=== PATIENT | male | born 1965 | race African-American/Black ===

== ENCOUNTER 2024-06-01 13:50 | Observation (INO) | payer OTHER ==
--- NOTE | 2024-06-01 14:30 | ED ---
Recheck HPI - General Source: patient, EMS, RN notes reviewed Mode of arrival: EMS Limitations: no limitations <Whitney Lagos - Last Filed: 06/01/24 14:28> <Frederic Frances - Last Filed: 06/01/24 18:14> - General Chief Complaint: Recheck/Abnormal Lab/Rx Stated Complaint: SOB Time Seen by Provider: 06/01/24 14:25 - History of Present Illness Initial Comments: Quick Note: This is a 59-year-old male who presents to the emergency department for low oxygen saturation. Patient went to check into [facility] and states that he had just come down the stairs and was somewhat winded. They checked his oxygen saturation and noted it to be low. Patient has a history of COPD and wears oxygen as needed. He told them that if they would have let him go use his oxygen it would have come back up. However, they called EMS to bring him here. Patient states that he currently feels fine and does not need to be here. (Whitney Lagos) - Related Data Home Medications Medication Instructions Recorded Confirmed Albuterol Inhaler [Ventolin Hfa 2 puff INHALATION RT-QID PRN 06/01/24 06/01/24 Inhaler] Atorvastatin [Lipitor] 20 mg PO HS@209906/01/24 06/01/24 Celecoxib [CeleBREX] 200 mg PO DAILY PRN 06/01/24 06/01/24 Fluticasone/Umeclidin/Vilanter 1 puff INHALATION RT-DAILY 06/01/24 06/01/24 [Trelegy Ellipta 100-62.5-25] Gabapentin 800 mg PO DAILY 06/01/24 06/01/24 Lisinopril-Hctz 10-12.5 mg 1 tab PO DAILY 06/01/24 06/01/24 [Zestoretic 10-12.5] Nicotine 21Mg/24Hr Patch [Habitrol] 1 patch TRANSDERM DAILY 06/01/24 06/01/24 Omeprazole 20 mg PO BID 06/01/24 06/01/24 Tamsulosin [Flomax] 0.4 mg PO DAILY 06/01/24 06/01/24 metFORMIN HCL 500 mg PO BID 06/01/24 06/01/24 traZODone HCL 150 mg PO HS@2100 06/01/24 06/01/24 valACYclovir HCL [Valacyclovir] 500 mg PO DAILY 06/01/24 06/01/24 Allergies Allergy/AdvReac Type Severity Reaction Status Date / Time sulfamethoxazole Allergy Rash/Hives Verified 06/01/24 17:40 [From Bactrim] trimethoprim [From Bactrim] Allergy Rash/Hives Verified 06/01/24 17:40 Review of Systems ROS Other: All systems not noted in ROS Statement are negative. <Whitney Lagos - Last Filed: 06/01/24 14:28> ROS Other: All systems not noted in ROS Statement are negative. <Frederic Frances - Last Filed: 06/01/24 18:14> ROS Statement: Those systems with pertinent positive or pertinent negative responses have been documented in the HPI. Past Medical History Past Medical History: COPD, Diabetes Mellitus, Hypertension Smoking Status: Current every day smoker Past Alcohol Use History: Daily, Heavy Past Drug Use History: Cocaine <Whitney Lagos - Last Filed: 06/01/24 14:28> General Exam Limitations: no limitations <Whitney Lagos - Last Filed: 06/01/24 14:28> - General Exam Comments Initial Comments: Visual Physical Exam Vital signs reviewed General: Well-appearing, nontoxic, no acute distress. Head: Normocephalic, atraumatic Eyes: PERRLA, EOMI ENT: Airway patent Chest: Nonlabored breathing Skin: No visual rash, normal skin tone Neuro: Alert and oriented 3 Musculoskeletal: No gross abnormalities (Whitney Lagos) Course Vital Signs 06/01/24 06/01/24 06/01/24 14:00 17:00 17:17 Temperature 97.9 F Pulse Rate 89 86 77 Respiratory 18 18 Rate Blood Pressure 98/67 O2 Sat by Pulse 91 L 93 L Oximetry 06/01/24 06/01/24 17:31 17:33 Temperature Pulse Rate 84 81 Respiratory 24 Rate Blood Pressure 111/84 O2 Sat by Pulse 100 Oximetry Medical Decision Making <Whitney Lagos - Last Filed: 06/01/24 14:28> - Lab Data Result diagrams: 06/01/24 17:04 06/01/24 16:40 <Frederic Frances - Last Filed: 06/01/24 18:14> - Medical Decision Making I performed the QuickNote portion of this chart. Signed Whitney Lagos PA-C. (Whitney Lagos) Was pt. sent in by a medical professional or institution ([facility], [employer], urgent care, hospital, or prison...) When possible be specific @ -No Did you speak to anyone other than the patient for history (EMS, parent, family, police, friend...)? What history was obtained from this source @ -No Did you review nursing and triage notes (agree or disagree)? Why? @ -I reviewed and agree with nursing and triage notes Were old charts reviewed (outside hosp., previous admission, EMS record, old EKG, old radiological studies, urgent care reports/EKG's, prison records)? Report findings @ -No old charts were reviewed Differential Dyspnea: Coronary syndrome, arrhythmia, tamponade, asthma, COPD, pulmonary embolism, pneumonia, pneumothorax, pulmonary effusion, anaphylaxis, diabetic ketoacidosis, flailed chest, pulmonary contusion, diaphragmatic rupture, anemia, neuromuscular, this is not meant to be an all-inclusive list. EKG interpreted by me (3pts min.). @Sinus rhythm rate of 75, ME interval 170, QRS duration 104, QTc [address] segment elevation X-rays interpreted by me (1pt min.). @ -X-ray shows bilateral lower lobe infiltrate as well as large bulla in the right upper lung field CT interpreted by me (1pt min.). @ -None done U/S interpreted by me (1pt. min.). @ -None done What testing was considered but not performed or refused? (CT, X-rays, U/S, labs)? Why? @ -None What meds were considered but not given or refused? Why? @ -None Did you discuss the management of the patient with other professionals (professionals i.e. [facility], [employer], lab, RT, psych nurse, social organization professor, gunner's mate m, teacher, licensed mortgage loan officer, rn case mgr)? Give summary @ -No Was smoking cessation discussed for >3mins.? @ -No Was critical care preformed (if so, how long)? @ -No Were there social determinants of health that impacted care today? How? (Johnnie elessness, low income, unemployed, alcoholism, drug addiction, transportation, low edu. Level, literacy, decrease access to med. care, skilled nursing, rehab)? @ -No Was there de-escalation of care discussed even if they declined (Discuss DNR or withdrawal of care, Hospice)? DNR status @ -No What co-morbidities impacted this encounter? (DM, HTN, Smoking, COPD, CAD, Cancer, CVA, ARF, Chemo, Hep., AIDS, mental health diagnosis, sleep apnea, morbid obesity)? @ -COPD Was patient admitted / discharged? Hospital course, mention meds given and route, prescriptions, significant lab abnormalities, going to OR and other pertinent info. @ -[59-year-old male presenting for evaluation of dyspnea, history of COPD and stimulant abuse. Patient was checking into [facility] found to be hypoxic. Patient stated he does occasionally use supplemental oxygen. He does report cough. Chest x-ray shows large bulla in the right upper lung and bilateral lower lobe infiltrate. Patient has normal CBC, normal CMP. He will be treated for COPD exacerbation and pneumonia. Admitted for hypoxia. Case discussed with sound physician group. Undiagnosed new problem with uncertain prognosis? @ -No Drug Therapy requiring intensive monitoring for toxicity (Heparin, Nitro, Insulin, Cardizem)? @ -No Were any procedures done? @ -No Diagnosis/symptom? @COPD, pneumonia Acute, or Chronic, or Acute on Chronic? @ -Default Uncomplicated (without systemic symptoms) or Complicated (systemic symptoms)? @ -Default Side effects of treatment? @ -No Exacerbation, Progression, or Severe Exacerbation? @ -No Poses a threat to life or bodily function? How? (Chest pain, USA, PA, pneumonia, PE, COPD, DKA, ARF, appy, cholecystitis, CVA, Diverticulitis, Homicidal, Suicidal, threat to staff... and all critical care pts) @ -yes, respiratory failure, hypoxia, sepsis (Frederic Frances) - Lab Data Lab Results 06/01/24 06/01/24 06/01/24 Range/Units 16:40 16:40 17:04 WBC 6.3 (3.8-10.6) k/uL RBC 4.79 (4.30-5.90) m/uL Hgb 13.7 (13.0-17.5) gm/dL Hct 44.1 (39.0-53.0) % MCV 92.1 (80.0-100.0) fL MCH 28.7 (25.0-35.0) pg MCHC 31.1 (31.0-37.0) g/dL RDW 16.8 H (11.5-15.5) % Plt Count 308 (150-450) k/uL MPV 9.5 Neutrophils % 47 % Lymphocytes % 44 % Monocytes % 5 % Eosinophils % 2 % Basophils % 1 % Neutrophils # 3.0 (1.3-7.7) k/uL Lymphocytes # 2.7 (1.0-4.8) k/uL Monocytes # 0.3 (0-1.0) k/uL Eosinophils # 0.2 (0-0.7) k/uL Basophils # 0.0 (0-0.2) k/uL Hypochromasia Slight Anisocytosis Slight Sodium 138 (137-145) mmol/L Potassium 4.6 (3.5-5.1) mmol/L Chloride 103 (98-107) mmol/L Carbon Dioxide 30 (22-30) mmol/L Anion Gap 5 mmol/L BUN 13 (9-20) mg/dL Creatinine 0.79 (0.66-1.25) mg/dL Est GFR (CKD-EPI)AfAm >90 (>60 ml/min/1.73 sqM) Est GFR (CKD-EPI)NonAf >90 (>60 ml/min/1.73 sqM) Glucose 72 L (74-99) mg/dL Plasma Lactic Acid Barry 1.5 (0.7-2.0) mmol/L Calcium 8.9 (8.4-10.2) mg/dL Total Bilirubin 0.9 (0.2-1.3) mg/dL AST 73 H (17-59) U/L ALT 38 (4-49) U/L Alkaline Phosphatase 79 (38-126) U/L Total Protein 7.1 (6.3-8.2) g/dL Albumin 3.5 (3.5-5.0) g/dL Disposition <Whitney Lagos - Last Filed: 06/01/24 14:28> Is patient prescribed a controlled substance at d/c from ED?: No Time of Disposition: 18:14 <Frederic Frances Last Filed: 06/01/24 18:14> Clinical Impression: COPD exacerbation, Pneumonia Disposition: ADMITTED IP TO THIS HOSP Condition: Stable Referrals: Nonstaff,Physician [Primary Care Provider] - 1-2 days
--- NOTE | 2024-06-01 15:45 | XR ---
EXAMINATION TYPE: XR chest 2V DATE OF EXAM: 06/01/2024 COMPARISON: None HISTORY: 51 year-old male shortness of breath, difficulty breathing TECHNIQUE: PA and lateral views FINDINGS: Elevation right hemidiaphragm. Multifocal patchy and interstitial opacities especially in the left si de. Heart is normal in size. This is estimated to measure up to 15.1 cm. No pleural effusion. IMPRESSION: 1. Bullous emphysema. Right upper lung bulla estimated to measure up to 15.1 cm. 2. Patchy infiltrates in the bilateral mid and lower lungs. Correlate for infectious or aspiration pn eumonitis. 3. Asymmetric elevation right hemidiaphragm. If concern for hemidiaphragmatic paralysis, a fluoroscop ic sniff test can be performed. [facility], , 06/01/2024 3:43 PM
[2024-06-01 17:11] LABS: ALT 38 U/L (4-49); African American GFR (CKD) >90 (>60 ml/min/1.73 sqM); Anion Gap 5 mmol/L; Blood Urea Nitrogen 13 mg/dL (9-20); Calcium 8.9 mg/dL (8.4-10.2); Carbon Dioxide 30 mmol/L (22-30); Chloride 103 mmol/L (98-107); Non-African American GFR(CKD) >90 (>60 ml/min/1.73 sqM); Sodium 138 mmol/L (137-145)
[2024-06-01] MEDS: IPRATROPIUM 0.5 MG/2.5 ML NEBU INHALATION STA (17:16)
[2024-06-01] MEDS: ALBUTEROL NEBULIZED 2.5 MG/3 ML INHALATION STA (17:16)
[2024-06-01] MEDS: SODIUM CHLORIDE 0.9% 500 ML 500 ML IV STA (17:24)
[2024-06-01] MEDS: methylPREDNISolone SOD SUCCI 125 MG/2 ML VIAL IV STA (17:24)
[2024-06-01] MEDS: SODIUM CHLORIDE 0.9% 1,000 ML IV STA (17:24)
[2024-06-01 17:38] LABS: AST 73 U/L (17-59); Albumin 3.5 g/dL (3.5-5.0); Alkaline Phosphatase 79 U/L (38-126); Glucose 72 mg/dL (74-99); Potassium 4.6 mmol/L (3.5-5.1); Total Bilirubin 0.9 mg/dL (0.2-1.3); Total Protein 7.1 g/dL (6.3-8.2)
[2024-06-01 17:55] LABS: Anisocytosis Slight; Basophils % (A) 1 %; Eosinophils # (A) 0.2 k/uL (0-0.7); Eosinophils % (A) 2 %; HCT 44.1 % (39.0-53.0); HGB 13.7 gm/dL (13.0-17.5); Hypochromasia Slight; Lymphocytes # (A) 2.7 k/uL (1.0-4.8); Lymphocytes % (A) 44 %; MCH 28.7 pg (25.0-35.0); MCHC 31.1 g/dL (31.0-37.0); MCV 92.1 fL (80.0-100.0); Mean Platelet Volume 9.5; Monocytes # (A) 0.3 k/uL (0-1.0); Monocytes % (A) 5 %; Neutrophils % (A) 47 %; Platelet Count 308 k/uL (150-450); RBC 4.79 m/uL (4.30-5.90); RDW 16.8 % (11.5-15.5); WBC 6.3 k/uL (3.8-10.6)
[2024-06-01] MEDS: LORazepam 2 MG/ML INJ IV STA (18:04)
[2024-06-01] MEDS: AZITHROMYCIN 500 MG in SODIUM CHLORIDE 0.9% 250 ML IVPB STA (18:04)
[2024-06-01] MEDS ORDERED: NALOXONE 0.4 MG/ML 1 ML VIAL IVP PRN (18:11)
[2024-06-01] MEDS: IPRATROPIUM-ALBUTEROL 3 ML NEB INHALATION SCH (20:33)
--- NOTE | 2024-06-01 20:44 | P.HPIM ---
History of Present Illness H&P Date: 06/01/24 Chief Complaint: hypoxemia Patient is a 59-year-old male with COPD (home O2 2 L), hypertension, type II diabetes presents to the ED with low oxygen saturation. Patient states that he felt short of breath after going down a flight of stairs. As he was checking in the [facility] decided to check his oxygen levels and it was noted to be low, they advised him to go to the emergency department. Patient was seen at bedside in the ED, and states he feels a lot better. Patient denies fever, chills, chest pain, nausea, vomiting, abdominal pain. Patient denies any known sick contact, he reports a chronic cough unchanged from baseline denies any hemoptysis, he uses home oxygen as needed 2 L which she did not have on him when he was checking in to [facility]. He reports that he gets easily winded which has been the case for many years he continues to smoke and trying to quit. He denies any recent travel or hospital stay he denies any history of blood clots. Patient was going to [facility] for rehab from drug abuse he admits to occasionally using cocaine and last time he used it it was laced with fentanyl. reports unintentional weight loss of about 25 lbs over past few months Review of systems: Pertinent positives and negatives as discussed in HPI, a complete review of systems was performed and all other systems are negative. Physical examination: Vitals: OR 100, RR 22 short of breath-labored, OR 102/63, O2 sat 97% on 2 L nasal cannula General: non toxic, mild distress, appears at stated age, normal weight Derm: no unusual rashes/lesions, warm Head: atraumatic, normocephalic, symmetric Eyes: EOMI, anicteric sclera, pupils equal round reactive to light ENT: Nose and ears atraumatic Mouth: no lip lesion, mucus membranes moist Cardiovascular: S1S2 reg, no murmur, positive dorsalis pedis pulse bilateral, no edema Lungs: Lung sounds diminished, no rhonchi, no rales, no accessory muscle use Abdominal: soft, nontender to palpation, no guarding Ext: muscle strength 5 out of 5 in all 4 extremities grossly, no gross muscle atrophy, no contractures, Neuro: CN II-XI grossly intact, no gross focal neuro deficits Psych: Alert, oriented, to person, place, and time Assessment/Plan: Patient is a 59-year-old male with COPD (home O2 2 L), hypertension, type II diabetes presents to the ED with abnormal lab value. ED documentation reviewed and case discussed with ED provider. Discussed with patient. The patient is admitted with an anticipated greater than 2 midnight stay for evaluation of COPD exacerbation. #. Acute on chronic hypoxic respiratory failure, with end stage COPD #. COPD exacerbation Suspected pneumonia CBC unremarkable hgb13.7, wbc 7.5 EKG independently interpreted showed sinus rhythm, no abnormal ST changes or T wave abnormalities, rate 75 bpm, QTc 426 ms CXR independently interpreted showed bullous emphysema in the right upper lung estimated to measure up to 15.1 cm, Patchy infiltrates bilateral mid lower lung arauz, asymmetric elevation of right hemidiaphragm On 4 L nasal cannula, keep O2 saturation between 88-92% DuoNeb 3 mL inhalation QID DuoNeb 3 mL inhalation every 2hr PRN Placed on Solu-Medrol 60 mg IV Q6hr Blood cultures ordered Procalcitonin ordered Pulmonology consulted s/p Rocephine 2 gm IVPB and Azithromycin IVPB 500 mg in the ED, continue with Azithromycin 500 mg po daily Symbicort 2 puffs BID check ambulatory oxygen saturation in the morning xanax 0.5 mg po tid PRN for anxiety #. Type 2 diabetes #. Hypoglycemia Glucose 72 Patient asymptomatic Hold oral diabetic medication Accu-Cheks Fall precautions Glucose should correct with IV Solu-Medrol Place on insulin SQ sliding scale #. Hypertension Hold antihypertensives for now due to borderline low BP Continue with NS at 75 cc/hr #. Hyperlipidemia Continue atorvastatin 20 mg PO at bedtime #. BPH Continue Flomax 0.4 mg PO daily #. GERD Continue omeprazole 20 mg p.o. twice daily long history of smoking , patient reported unintentional weight loss, consider repeating CXR in 6 weeks to confirm resolution of the patchy infilterates, and if residual consider CT of the chest consider Low dose CT scan of the lungs as OP , for lung cancer screening , patient has > 30 pack year smoking DVT prophylaxis: Lovenox 40 SQ daily F: NS @ 75 cc/hr E: Replete electrolytes as needed N: Regular diet A: Ambulatory CODE STATUS: Full code Past Medical History Past Medical History: COPD, Diabetes Mellitus, Hypertension Smoking Status: Current every day smoker Past Alcohol Use History: Daily, Heavy Past Drug Use History: Cocaine Medications and Allergies Home Medications Medication Instructions Recorded Confirmed Type Albuterol Inhaler [Ventolin Hfa 2 puff INHALATION RT-QID PRN 06/01/24 06/01/24 History Inhaler] Atorvastatin [Lipitor] 20 mg PO HS@2100 06/01/24 06/01/24 History Celecoxib [CeleBREX] 200 mg PO DAILY PRN 06/01/24 06/01/24 History Fluticasone/Umeclidin/Vilanter 1 puff INHALATION RT-DAILY 06/01/24 06/01/24 History [Trelegy Ellipta 100-62.5-25] Gabapentin 800 mg PO DAILY 06/01/24 06/01/24 History Lisinopril-Hctz 10-12.5 mg 1 tab PO DAILY 06/01/24 06/01/24 History [Zestoretic 10-12.5] Nicotine 21Mg/24Hr Patch [Habitrol] 1 patch TRANSDERM DAILY 06/01/24 06/01/24 History Omeprazole 20 mg PO BID 06/01/24 06/01/24 History Tamsulosin [Flomax] 0.4 mg PO DAILY 06/01/24 06/01/24 History metFORMIN HCL 500 mg PO BID 06/01/24 06/01/24 History traZODone HCL 150 mg PO HS@209906/01/24 06/01/24 History valACYclovir HCL [Valacyclovir] 500 mg PO DAILY 06/01/24 06/01/24 History Allergies Allergy/AdvReac Type Severity Reaction Status Date / Time sulfamethoxazole Allergy Rash/Hives Verified 06/01/24 17:40 [From Bactrim] trimethoprim [From Bactrim] Allergy Rash/Hives Verified 06/01/24 17:40 Physical Exam Vitals: Vital Signs Temp Pulse Resp BP Pulse Ox 06/01/24 19:26 22 06/01/24 18:24 100 24 102/63 97 06/01/24 17:33 81 06/01/24 17:31 84 24 111/84 100 06/01/24 17:17 77 06/01/24 17:00 86 18 93 L 06/01/24 14:00 97.9 F 89 18 98/67 91 L Intake and Output 06/01/24 06/01/24 06/01/24 06:59 14:59 22:59 Other: Weight 79.379 kg Results CBC & Chem 7: 06/01/24 17:04 06/01/24 16:40 Labs: Abnormal Lab Results - Last 24 Hours (Table) 06/01/24 06/01/24 Range/Units 16:40 17:04 RDW 16.8 H (11.5-15.5) % Glucose 72 L (74-99) mg/dL AST 73 H (17-59) U/L Assessment and Plan Assessment: I have seen and evaluated the patient today. I Discussed the case with the resident and agree with the resident's findings I edited the assessment and pl an as necessary as documented in the resident's note.
[2024-06-01 21:09] LABS: Glucose,Whole Blood 150 mg/dL (70-110)
[2024-06-01] MEDS: INSULIN ASPART (NovoLOG) 100 UNIT/ML VIAL SQ SCH (21:32)
[2024-06-01] MEDS: ATORVASTATIN 20 MG TAB PO SCH (21:34)
[2024-06-01] MEDS: methylPREDNISolone SOD SUCCI 125 MG/2 ML VIAL IV SCH (23:36)
[2024-06-01] MEDS: ALPRAZolam 0.5 MG TAB PO PRN (23:37)
[2024-06-01] MEDS: traZODone HCL 50 MG TAB PO SCH (23:37)
[2024-06-02] MEDS: IPRATROPIUM-ALBUTEROL 3 ML NEB INHALATION PRN (04:52)
--- NOTE | 2024-06-02 05:15 | P.CNPUL ---
History of Present Illness Consult date: 06/02/24 Reason for consult: COPD Chief complaint: Shortness of breath and hypoxia History of present illness: Patient is a 59-year-old male with past medical history significant for COPD, current smoker, alcoholism, polysubstance abuse, diabetes mellitus, hypertension. Patient lives in [place]. His established pulmonogist is a Dr. Wilder out of [place], [place]. Patient was at [facility] to check in for rehab. He uses cocaine frequently, reportedly possibly laced with fentanyl. Has history of alcoholism, but now only drinking approximately 1 beer per month. While at [facility]. He was short of breath when ambulating down some stairs. The staff checked his pulse ox, which was noted to be low. Patient chronically wears 2 L/min nasal cannula as needed, and this was not on at this time. EMS was called and the patient was brought to the emergency department for evaluation. He was admitted with COPD exacerbation. Patient currently on the general medical floor. He is resting comfortably on 2 L/min nasal cannula. Patient denies runny nose, sore throat, postnasal drip, sinus pressure. He does report being more short of breath than baseline. His cough is congested and occasionally has yellow sputum production. He denies any fevers or chills. No chest pain or hemoptysis. Denies sick contacts. Chest x- ray done on arrival shows chronic changes consistent with COPD and hyperinflat ion. There is an elevated right hemidiaphragm and associated atelectasis. There is a large right bullae. questionable bibasilar infiltrates or atelectasis. Patient was started empirically on azithromycin. Also, received a dose of Rocephin in the emergency department. Procalcitonin level pending. He is afebrile. CBC unremarkable, no leukocytosis. CMP also unremarkable. EKG: Normal sinus rhythm with rate of 75 bpm, nonspecific ST elevations. Patient has been started on a combination of bronchodilators, Symbicort inhaler, and prednisone taper. Review of Systems Constitutional: Reports weight loss, Denies chills, Denies fever, Denies weight gain Ears, nose, mouth and throat: Denies headache, Denies nasal congestion, Denies nasal discharge, Denies post-nasal drip, Denies sinus pressure, Denies sore throat Cardiovascular: Denies chest pain, Denies leg edema, Denies lightheadedness, Denies orthopnea, Denies palpitations, Denies paroxysmal nocturnal dyspnea, Denies shortness of breath Respiratory: Reports as per HPI Gastrointestinal: Reports loss of appetite, Denies abdominal pain, Denies change in bowel habits, Denies constipation, Denies diarrhea, Denies nausea, Denies vomiting Genitourinary: Denies dysuria Musculoskeletal: Denies arm numbness/tingling, Denies leg numbness/tingling, Denies limitation of motion, Denies muscle weakness Integumentary: Denies rash Neurological: Denies confusion, Denies headaches, Denies seizures, Denies s yncope, Denies visual changes Psychiatric: Reports anxiety, Reports depression, Denies suicidal ideation Past Medical History Past Medical History: COPD, Diabetes Mellitus, Hypertension History of Any Multi-Drug Resistant Organisms: None Reported Past Surgical History: Orthopedic Surgery Additional Past Surgical History / Comment(s): left hand surgery Past Anesthesia/Blood Transfusion Reactions: No Reported Reaction Smoking Status: Current every day smoker Past Alcohol Use History: Daily, Heavy Past Drug Use History: Cocaine Medications and Allergies Home Medications Medication Instructions Recorded Confirmed Type Albuterol Inhaler [Ventolin Hfa 2 puff INHALATION RT-QID PRN 06/01/24 06/01/24 History Inhaler] Atorvastatin [Lipitor] 20 mg PO HS@2100 06/01/24 06/01/24 History Celecoxib [CeleBREX] 200 mg PO DAILY PRN 06/01/24 06/01/24 History Fluticasone/Umeclidin/Vilanter 1 puff INHALATION RT-DAILY 06/01/24 06/01/24 History [Trelegy Ellipta 100-62.5-25] Gabapentin 800 mg PO DAILY 06/01/24 06/01/24 History Lisinopril-Hctz 10-12.5 mg 1 tab PO DAILY 06/01/24 06/01/24 History [Zestoretic 10-12.5] Nicotine 21Mg/24Hr Patch [Habitrol] 1 patch TRANSDERM DAILY 06/01/24 06/01/24 History Omeprazole 20 mg PO BID 06/01/24 06/01/24 History Tamsulosin [Flomax] 0.4 mg PO DAILY 06/01/24 06/01/24 History metFORMIN HCL 500 mg PO BID 06/01/24 06/01/24 History traZODone HCL 150 mg PO HS@2100 06/01/24 06/01/24 History valACYclovir HCL [Valacyclovir] 500 mg PO DAILY 06/01/24 06/01/24 History Allergies Allergy/AdvReac Type Severity Reaction Status Date / Time sulfamethoxazole Allergy Rash/Hives Verified 06/01/24 17:40 [From Bactrim] trimethoprim [From Bactrim] Allergy Rash/Hives Verified 06/01/24 17:40 Physical Exam Vitals: Vital Signs Temp Pulse Pulse Resp BP BP Pulse Ox 06/02/24 01:47 98.0 F 81 18 119/78 95 06/01/24 21:30 97.5 F L 88 20 119/80 93 L 06/01/24 20:45 77 06/01/24 20:33 75 06/01/24 20:00 97.5 F L 88 88 20 107/65 119/80 93 L 06/01/24 19:26 22 06/01/24 18:24 100 24 102/63 97 06/01/24 17:33 81 06/01/24 17:31 84 24 111/84 100 06/01/24 17:17 77 06/01/24 17:00 86 18 93 L 06/01/24 14:00 97.9 F 89 18 98/67 91 L Intake and Output 06/01/24 06/01/24 06/02/24 14:59 22:59 06:59 Other: Voiding Method Urinal # Voids 1 Weight 79.379 kg 79.379 kg GENERAL EXAM: Alert, 59-year-old -Gabonese male, comfortable in no apparent distress. HEAD: Normocephalic and atraumatic EYES: Normal reaction of pupils, equal size. NOSE: Clear with pink turbinates. THROAT: No erythema or exudates. NECK: No masses, no JVD. CHEST: No chest wall deformity. LUNGS: Equal air entry, diminished throughout, scattered ronch. On 2 L/min nasal cannula. No conversational dyspnea or accessory muscle use.. CVS: S1 and S2 normal with no audible murmur, regular rhythm. No extra heart sounds ABDOMEN: No hepatosplenomegaly, active bowel sounds, no guarding or rigidity. SPINE: No scoliosis or deformity SKIN: No rashes CENTRAL NERVOUS SYSTEM: No focal deficits, tone is normal in all 4 extremities. EXTREMITIES: There is no peripheral edema, clubbing, or cyanosis. Peripheral pulses are intact. Results - Laboratory Findings CBC and BMP: 06/01/24 17:04 06/01/24 16:40 Abnormal lab findings: Abnormal Labs 06/01/24 06/01/24 06/01/24 16:40 17:04 21:08 RDW 16.8 H Glucose 72 L POC Glucose (mg/dL) 150 H AST 73 H - Diagnostic Findings Chest x-ray: image reviewed Assessment and Plan Assessment: Acute COPD exacerbation, Chest x-ray done on arrival shows chronic changes consistent with COPD and hyperinflation. There is an elevated right hemidiaphragm and associated atelectasis. There is a large right bullae. questionable bibasilar infiltrates or atelectasis. Chronic obstructive pulmonary disease and bullous emphysema, utilizes Trelegy maintenance inhaler on an outpatient basis Chronic hypoxemic respiratory failure, normally maintained on 2 L/min nasal cannula as needed Unexplained, 25 pound weight loss over the last 2 months History of alcoholism, on average currently only drinks 1 beer per month History of polysubstance abuse Chronic ongoing tobacco dependence, reportedly down to 5 cigarettes/day, but carries heavy past smoking history greater than 20 pack years. History of hypertension History of hyperlipidemia Diabetes mellitus type 2 history of BPH Plan: Patient's medications, labs, chest x-ray reviewed Patient currently on 2 L/min nasal cannula, which he chronically wears at home Continue on empiric antibiotics at this time Check procalcitonin level Check Cepheid 4 Plex Continue on combination of bronchodilators, Symbicort inhaler, and prednisone taper Smoking cessation counseling performed greater than 10 minutes Nicotine patch offered Anticipate 24 to 48-hour hospitalization. Recommend that the patient follow-up with his established dough puncher on dis charge, Recommend low-dose screening CT of the chest, on outpatient basis, given patients extensive smoking history and age. We will continue to follow while inpatient I have personally seen and examined the patient, performed the documentation and the assessment and plan as written. Number of minutes spent on the visit:20 Time with Patient: Greater than 30
[2024-06-02 05:59] LABS: Glucose,Whole Blood 297 mg/dL (70-110)
[2024-06-02] MEDS: SYMBICORT 160-4.5 MCG INHALER INHALATION SCH (07:25)
[2024-06-02 08:37] LABS: Basophils # (A) 0 X 10*3/uL (0.00-0.10); Basophils % (A) 0 %; Eosinophils # (A) 0 X 10*3/uL (0.04-0.35); Eosinophils % (A) 0 %; HCT 41.4 % (39.6-50.0); HGB 13.2 g/dL (13.0-17.0); Lymphocytes # (A) 1.22 X 10*3/uL (0.90-5.00); Lymphocytes % (A) 20.7 %; MCH 28.4 pg (27.0-32.0); MCHC 31.9 g/dL (32.0-37.0); Mean Platelet Volume 11.3 FL (9.5-12.2); Monocytes # (A) 0.06 X 10*3/uL (0.20-1.00); NRBC Per 100 WBC 0 X 10*3/uL (0.00-0.01); Neutrophils # (A) 4.59 X 10*3/uL (1.80-7.70); Platelet Count 286 X 10*3/uL (140-440); RBC 4.65 X 10*6/uL (4.40-5.60); RDW 18.5 % (11.5-14.5); WBC 5.89 X 10*3/uL (4.50-10.00)
[2024-06-02] MEDS: predniSONE 20 MG TAB PO SCH (10:18)
[2024-06-02] MEDS: ENOXAPARIN 40 MG/0.4 ML SYRINGE SQ SCH (10:19)
[2024-06-02] MEDS: AZITHROMYCIN 500 MG TAB PO SCH (10:19)
[2024-06-02] MEDS: TAMSULOSIN 0.4 MG CAP.ER.24H PO SCH (10:19)
[2024-06-02 10:28] LABS: ALT 37 U/L (10-49); AST 41 U/L (14-35); Albumin 3.5 g/dL (3.8-4.9); Albumin/Globulin Ratio 1.13 Ratio (1.60-3.17); Alkaline Phosphatase 112 U/L (41-126); BUN/Creat Ratio 11.62 Ratio (12.00-20.00); Blood Urea Nitrogen 9.3 mg/dL (9.0-27.0); Calcium 8.9 mg/dL (8.7-10.3); Carbon Dioxide 25.2 mmol/L (21.6-31.8); Chloride 102 mmol/L (96-109); Globulin 3.1 g/dL (1.6-3.3); Glucose 241 mg/dL (70-110); Magnesium 1.9 mg/dL (1.5-2.4); Potassium 4.9 mmol/L (3.5-5.5); Sodium 138 mmol/L (135-145); Total Bilirubin <0.2 mg/dL (0.3-1.2); Total Protein 6.6 g/dL (6.2-8.2)
[2024-06-02 10:35] LABS: Urine Alcohol Negative (Negative); Urine Barbiturate Negative (Negative); Urine Cocaine Positive (Negative); Urine Methadone Negative (Negative); Urine Opiates Negative (Negative); Urine Phencyclidine Negative (Negative)
[2024-06-02] MEDS: NICOTINE 21MG/24HR PATCH TRANSDERM SCH (11:02)
[2024-06-02 13:23] LABS: Glucose,Whole Blood 149 mg/dL (70-110)
--- NOTE | 2024-06-02 14:26 | P.PN ---
Subjective Progress Note Date: 06/02/24 Subjective: Patient seen and examined at bedside All Systems reviewed and pertinent positives and negatives noted in HPI, all other symptoms are negative Objective: Patient seen and examined at the bedside. Patient reports that is feeling better overall. Reports increased productive cough since last 3 to 4 days with yellowish sputum. Vital signs reviewed. Physical examination: Vitals: RI 100, RR 22 short of breath-labored, RI 102/63, O2 sat 97% on 2 L nasal cannula General: non toxic, mild distress, appears at stated age, normal weight Derm: no unusual rashes/lesions, warm Head: atraumatic, normocephalic, symmetric Eyes: EOMI, anicteric sclera, pupils equal round reactive to light ENT: Nose and ears atraumatic Mouth: no lip lesion, mucus membranes moist Cardiovascular: S1S2 reg, no murmur, positive dorsalis pedis pulse bilateral, no edema Lungs: Lung sounds diminished, no rhonchi, no rales, no accessory muscle use Abdominal: soft, nontender to palpation, no guarding Ext: muscle strength 5 out of 5 in all 4 extremities grossly, no gross muscle atrophy, no contractures, Neuro: CN II-XI grossly intact, no gross focal neuro deficits Psych: Alert, oriented, to person, place, and time Labs reviewed: Labs: WBC 5.86 hemoglobin 13.2, hematocrit 41.4, MCV 89.0, platelet count 286, s odium 138, potassium 4.9, creatinine 0.8, glucose 149, AST 41, ALT 37, procalcitonin 0.05 Urine tox is positive for cocaine Troponin less than 0.012 negative CBC unremarkable hgb13.7, wbc 7.5 Imaging: EKG independently interpreted showed sinus rhythm, no abnormal ST changes or T wave abnormalities, rate 75 bpm, QTc 426 ms CXR independently interpreted showed bullous emphysema in the right upper lung estimated to measure up to 15.1 cm, Patchy infiltrates bilateral mid lower lung arauz, asymmetric elevation of right hemidiaphragm Assessment/Plan: Patient is a 59-year-old male with COPD (home O2 2 L), hypertension, type II diabetes presents to the ED with abnormal lab value. Patient is admitted for evaluation of COPD exacerbation. #Acute on chronic hypoxic respiratory failure, with end stage COPD #COPD exacerbation, COPD Gold Stage IV On 2 L nasal cannula, keep O2 saturation between 88-92% Poly scheduled and [id number] Prednisone 40 mg p.o. daily Blood cultures ordered Procalcitonin 0.05 Pulmonology consulted s/p Rocephine 2 gm IVPB and Azithromycin IVPB 500 mg in the ED, continue with Azithromycin 500 mg po daily for 2 more days -COPD Abx ppx warranted due to increased sputum production and change in coloration from clear to yellow Symbicort 2 puffs BID check ambulatory oxygen saturation in the morning xanax 0.5 mg po tid PRN for anxiety #Type 2 diabetes # Hyperglycemia Glucose 149 Hold oral diabetic medication Accu-Cheks Place on insulin SQ sliding scale #Hypertension Hold antihypertensives for now due to borderline low BP #Hyperlipidemia Continue atorvastatin 20 mg PO at bedtime #BPH Continue Flomax 0.4 mg PO daily #GERD Continue omeprazole 20 mg p.o. twice daily DVT prophylaxis: Lovenox 40 SQ daily F: NS @ 75 cc/hr E: Replete electrolytes as needed N: Consistent carbohydrate diet A: Ambulatory CODE STATUS: Full code I saw and evaluated the patient during the mason and critical portions of this encounter, and discussed the case in detail with the resident author of this note, I agree with the Assessment and Plan, and my changes, if any, are highlighted in blue. Objective - Vital Signs Vital signs: Vital Signs Temp 97.8 F 06/02/24 07:00 Pulse 76 06/02/24 07:39 Resp 18 06/02/24 07:00 BP 115/70 06/02/24 07:00 Pulse Ox 97 06/02/24 07:00 FiO2 Intake & Output 06/01/24 06/02/24 06/02/24 18:59 06:59 18:59 Intake Total 354 Balance 354 Weight 79.379 kg 79.379 kg Intake: Oral 354 Other: Voiding Method Urinal # Voids 3 - Labs CBC & Chem 7: 06/02/24 03:36 06/02/24 03:36 Labs: Abnormal Lab Results - Last 24 Hours (Table) 06/01/24 06/01/24 06/01/24 Range/Units 16:40 17:04 21:08 RDW 16.8 H (11.5-15.5) % Glucose 72 L (74-99) mg/dL POC Glucose (mg/dL) 150 H (70-110) mg/dL AST 73 H (17-59) U/L 06/02/24 Range/Units 05:57 RDW (11.5-15.5) % Glucose (74-99) mg/dL POC Glucose (mg/dL) 297 H (70-110) mg/dL AST (17-59) U/L
[2024-06-02 17:31] LABS: Glucose,Whole Blood 159 mg/dL (70-110)
[2024-06-02 20:22] LABS: Glucose,Whole Blood 109 mg/dL (70-110)
[2024-06-02] MEDS: ACETAMINOPHEN TAB 325 MG TAB PO PRN (20:34)
[2024-06-02] MEDS: PANTOPRAZOLE 40 MG TABLET PO SCH (20:34)
[2024-06-03 02:49] VITALS: RESP 16
[2024-06-03 05:00] LABS: African American GFR (CKD) >90 (>60 ml/min/1.73 sqM); Anion Gap 2 mmol/L; Blood Urea Nitrogen 14 mg/dL (9-20); Calcium 8.8 mg/dL (8.4-10.2); Carbon Dioxide 32 mmol/L (22-30); Chloride 103 mmol/L (98-107); Glucose 114 mg/dL (74-99); Non-African American GFR(CKD) 88 (>60 ml/min/1.73 sqM); Potassium 4.3 mmol/L (3.5-5.1); Sodium 137 mmol/L (137-145)
[2024-06-03 05:06] LABS: Anisocytosis Slight; Basophils # (A) 0.1 k/uL (0-0.2); Basophils % (A) 0 %; Eosinophils % (A) 0 %; HCT 38.6 % (39.0-53.0); HGB 12.5 gm/dL (13.0-17.5); Lymphocytes # (A) 2.9 k/uL (1.0-4.8); Lymphocytes % (A) 21 %; MCH 29.6 pg (25.0-35.0); MCHC 32.3 g/dL (31.0-37.0); MCV 91.6 fL (80.0-100.0); Mean Platelet Volume 9.6; Monocytes # (A) 0.5 k/uL (0-1.0); Monocytes % (A) 4 %; Neutrophils # (A) 9.9 k/uL (1.3-7.7); Neutrophils % (A) 72 %; Platelet Count 256 k/uL (150-450); RBC 4.21 m/uL (4.30-5.90); RDW 17.3 % (11.5-15.5); WBC 13.7 k/uL (3.8-10.6)
[2024-06-03 06:17] LABS: Glucose,Whole Blood 125 mg/dL (70-110)
[2024-06-03] MEDS: GABAPENTIN 400 MG CAP PO SCH (08:35)
--- NOTE | 2024-06-03 12:51 | P.DS ---
Providers Date of admission: 06/01/24 18:12 Attending physician: Kaiden Snider Discharge Diagnosis: #Acute on chronic hypoxic respiratory failure, with end stage COPD #COPD exacerbation, COPD Gold Stage IV #Type 2 diabetes # Hyperglycemia #Hypertension #Hyperlipidemia #BPH #GERD Hospital Course: Patient is a 59-year-old male with COPD (home O2 2 L), hypertension, type II diabetes presents to the ED with low oxygen saturation. Labs in ED showed WBC 6.3, hemoglobin 13.7, MCV 92.1, platelet count 308, sodium 138, potassium 4.6, bicarb 130, BUN 13, creatinine 0.79, lactic acid 1.5, calcium 8.9, AST 73, ALT 38, alkaline phosphatase 79. Urine tox is positive for cocaine. EKG showed sinus rhythm, no abnormal ST changes or T wave abnormalities, rate 75 bpm, QTc 426 ms. CXR independently interpreted showed bullous emphysema in the right upper lung estimated to measure up to 15.1 cm. Patchy infiltrates bilateral mid lower lung arauz, asymmetric elevation of right hemidiaphragm. Patient was admitted for acute on chronic hypoxemic respiratory failure and COPD exacerbation. Pulmonary was consulted. Patient was started on steroid. Patient was also given prophylactic antibiotic. His symptoms improved. No longer complaining of cough or shortness of breath. Patient was back to [facility] respiratory status 2 L oxygen via nasal cannula. Patient was hemodynamic stable upon discharge. Patient to complete course of antibiotics and steroid. Patient instructed to follow up with PCP and manufacturing applications engineer. Patient provided instruction on COPD. Rest of the medications were resumed as directed. Vital signs reviewed. Physical examination: Vitals: MO 100, RR 22 short of breath-labored, MO 102/63, O2 sat 97% on 2 L nasal cannula General: non toxic, mild distress, appears at stated age, normal weight Derm: no unusual rashes/lesions, warm Head: atraumatic, normocephalic, symmetric Eyes: EOMI, anicteric sclera, pupils equal round reactive to light ENT: Nose and ears atraumatic Mouth: no lip lesion, mucus membranes moist Cardiovascular: S1S2 reg, no murmur, positive dorsalis pedis pulse bilateral, no edema Lungs: CTAB, no rhonchi, no rales, no accessory muscle use Abdominal: soft, nontender to palpation, no guarding Ext: muscle strength 5 out of 5 in all 4 extremities grossly, no gross muscle atrophy, no contractures, Neuro: CN II-XI grossly intact, no gross focal neuro deficits Psych: Alert, oriented, to person, place, and time I saw and evaluated the patient during the mason and critical portions of this encounter, and discussed the case in detail with the resident author of this note, I agree with the Assessment and Plan, and my changes, if any, are hi ghlighted in blue. 35 minutes was spent with this discharge Consults: 06/01/24 18:11 Consult Physician Routine Consulting Provider: Frederic Martinez Consult Reason/Comments: COPD, PNA Do you want consulting provider notified?: Yes Primary care physician: Physician Nonstaff Patient Condition at Discharge: Stable Plan - Discharge Summary New Discharge Prescriptions: New predniSONE [Deltasone] 40 mg PO DAILY #4 tab Azithromycin [Zithromax] 500 mg PO DAILY #1 tab Continue traZODone HCL 150 mg PO HS@2100 metFORMIN HCL 500 mg PO BID Lisinopril-Hctz 10-12.5 mg [Zestoretic 10-12.5] 1 tab PO DAILY Gabapentin 800 mg PO DAILY Atorvastatin [Lipitor] 20 mg PO HS@2100 valACYclovir HCL [Valacyclovir] 500 mg PO DAILY Tamsulosin [Flomax] 0.4 mg PO DAILY Fluticasone/Umeclidin/Vilanter [Trelegy Ellipta 100-62.5-25] 1 puff INHALATION RT-DAILY Omeprazole 20 mg PO BID Nicotine 21Mg/24Hr Patch [Habitrol] 1 patch TRANSDERM DAILY Celecoxib [CeleBREX] 200 mg PO DAILY PRN PRN Reason: Pain Albuterol Inhaler [Ventolin Hfa Inhaler] 2 puff INHALATION RT-QID PRN PRN Reason: Shortness Of Breath Discharge Medication List Albuterol Inhaler [Ventolin Hfa Inhaler] 2 puff INHALATION RT-QID PRN 06/01/24 [History] Atorvastatin [Lipitor] 20 mg PO HS@2100 06/01/24 [History] Celecoxib [CeleBREX] 200 mg PO DAILY PRN 06/01/24 [History] Fluticasone/Umeclidin/Vilanter [Trelegy Ellipta 100-62.5-25] 1 puff INHALATION RT-DAILY 06/01/24 [History] Gabapentin 800 mg PO DAILY 06/01/24 [History] Lisinopril-Hctz 10-12.5 mg [Zestoretic 10-12.5] 1 tab PO DAILY 06/01/24 [Hist ory] Nicotine 21Mg/24Hr Patch [Habitrol] 1 patch TRANSDERM DAILY 06/01/24 [History] Omeprazole 20 mg PO BID 06/01/24 [History] Tamsulosin [Flomax] 0.4 mg PO DAILY 06/01/24 [History] metFORMIN HCL 500 mg PO BID 06/01/24 [History] traZODone HCL 150 mg PO HS@2100 06/01/24 [History] valACYclovir HCL [Valacyclovir] 500 mg PO DAILY 06/01/24 [History] Azithromycin [Zithromax] 500 mg PO DAILY #1 tab 06/03/24 [Rx] predniSONE [Deltasone] 40 mg PO DAILY #4 tab 06/03/24 [Rx] Follow up Appointment(s)/Referral(s): Frederic Martinez DO [Doctor of Osteopathic Medicine] - 1 Week Nonstaff,Physician [Primary Care Provider] - 1-2 days Patient Instructions/Handouts: COPD (Chronic Obstructive Pulmonary Disease) (DC) Activity/Diet/Wound Care/Special Instructions: please your PCP and Physical Biochemist Discharge Disposition: OTHER INSTITUTION NOT DEFINED
--- NOTE | 2024-06-03 13:40 | P.PN ---
Subjective Progress Note Date: 06/03/24 Principal diagnosis: Shortness of breath. Patient is a 59-year-old male with past medical history significant for COPD, current smoker, alcoholism, polysubstance abuse, diabetes mellitus, hypertension. Patient lives in [place]. His established pulmonogist is a Dr. Wilder out of [place], [place]. Patient was at [facility] to check in for rehab. He uses cocaine frequently, reportedly possibly laced with fentanyl. Has history of alcoholism, but now only drinking approximately 1 beer per month. While at [facility]. He was short of breath when ambulating down some stairs. The staff checked his pulse ox, which was noted to be low. Patient chronically wears 2 L/min nasal cannula as needed, and this was not on at this time. EMS was called and the patient was brought to the emergency department for evaluation. He was admitted with COPD exacerbation. Patient currently on the general medical floor. He is resting comfortably on 2 L/min nasal cannula. Patient denies runny nose, sore throat, postnasal drip, sinus pressure. He does report being more short of breath than baseline. His cough is congested and occasionally has yellow sputum production. He denies any fevers or chills. No chest pain or hemoptysis. Denies sick contacts. Chest x- ray done on arrival shows chronic changes consistent with COPD and hyperinflation. There is an elevated right hemidiaphragm and associated atelectasis. There is a large right bullae. questionable bibasilar infiltrates or atelectasis. Patient was started empirically on azithromycin. Also, recei willie a dose of Rocephin in the emergency department. Procalcitonin level pending. He is afebrile. CBC unremarkable, no leukocytosis. CMP also unremarkable. EKG: Normal sinus rhythm with rate of 75 bpm, nonspecific ST elevations. Patient has been started on a combination of bronchodilators, Symbi jack inhaler, and prednisone taper. Progress note dated June 03, 2024. 59-year-old black male seen in room 632. He was admitted with a diagnosis of COPD exacerbation. He has a history of chronic tobacco use, and current tobacco use, alcoholism, polysubstance abuse, diabetes mellitus, and hypertension. He resides in the [place] area. 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 The patient was admitted with a COPD exacerbation. He is doing much better. He is on 2 L of oxygen. Saturations are 96 to 97%. He is not receiving any IV fluids. In my opinion, the patient could be considered for possible discharge. Current labs include a white count 13.7, hemoglobin 12.5, hematocrit 38.6, and platelet count 256,000. Sodium 137, potassium 4.3, chlorides 103, CO2 32, BUN 14, creatinine 0.95. Glucose is 125. Hemoglobin A1c is 6.1. Calcium is 8.8. Objective - Vital Signs Vital signs: Vital Signs Temp 97.5 F L 06/03/24 07:00 Pulse 80 06/03/24 13:11 Resp 16 06/03/24 07:00 BP 109/67 06/03/24 07:00 Pulse Ox 95 06/03/24 11:43 FiO2 Intake & Output 06/02/24 06/03/24 06/03/24 18:59 06:59 18:59 Intake Total 1223 118 Balance 1223 118 Intake: Oral 1223 118 Other: Voiding Method Urinal # Voids 3 2 - Exam No acute distress, oriented 3. No respiratory distress. Currently on 2 L. HEENT examination is grossly unremarkable. Mucous membranes are moist. No oral lesions. Neck supple. Full range of motion. No adenopathy thyromegaly or neck vein distention. Cardiovascular examination reveals regular rhythm rate. S1-S2 normal. No S3 or S4. No discernible murmur noted. Lungs reveal mild scattered rhonchi. No wheezes or crackles. Breath sounds equal but diminished throughout. Saturations are excellent. Abdomen soft bowel sounds are heard. No masses or tenderness. Extremities are intact. No cyanosis clubbing or edema. Skin is without rash or lesion. Neurologic examination is brief but nonfocal. - Labs CBC & Chem 7: 06/03/24 03:46 06/03/24 03:46 Labs: Abnormal Lab Results - Last 24 Hours (Table) 06/02/24 06/03/24 06/03/24 Range/Units 17:27 03:46 03:46 WBC 13.7 H (3.8-10.6) k/uL RBC 4.21 L (4.30-5.90) m/uL Hgb 12.5 L (13.0-17.5) gm/dL Hct 38.6 L (39.0-53.0) % RDW 17.3 H (11.5-15.5) % Neutrophils # 9.9 H (1.3-7.7) k/uL Carbon Dioxide (22-30) mmol/L Glucose (74-99) mg/dL POC Glucose (mg/dL) 159 H (70-110) mg/dL Hemoglobin A1c 6.1 H (<=6.0) % 06/03/24 06/03/24 Range/Units 03:46 06:16 WBC (3.8-10.6) k/uL RBC (4.30-5.90) m/uL Hgb (13.0-17.5) gm/dL Hct (39.0-53.0) % RDW (11.5-15.5) % Neutrophils # (1.3-7.7) k/uL Carbon Dioxide 32 H (22-30) mmol/L Glucose 114 H (74-99) mg/dL POC Glucose (mg/dL) 125 H (70-110) mg/dL Hemoglobin A1c (<=6.0) % Microbiology - Last 24 Hours (Table) 06/01/24 17:15 Blood Culture - Preliminary Blood Assessment and Plan Assessment: Acute COPD exacerbation. Chronic obstructive pulmonary disease and bullous emphysema. Chronic hypoxemic respiratory failure, normally maintained on 2 L/min nasal cannula as needed. Unexplained, 25 pound weight loss over the last 2 months. History of alcoholism, on average currently only drinks 1 beer per month. History of polysubstance abuse. Chronic ongoing tobacco dependence. History of hypertension. History of hyperlipidemia. Diabetes mellitus type 2. History of BPH. Plan: Plan dated June 03, 2024. The patient appears to be doing much better. He is currently maintained on O2, at 2 L. Saturations are excellent. His breathing is much improved. The patient could be considered for possible discharge. He will need to follow-up with his own manufacturing associate. No additional recommendations are made. Prognosis is guarded. He is counseled about the importance of smoking cessation, and abstaining from alcohol use. Time with Patient: Less than 30
[2024-06-03 13:42] LABS: Glucose,Whole Blood 139 mg/dL (70-110)
[2024-06-03 14:12] VITALS: BP 120/73; PULSE 97; TEMP 97.7
[2024-06-03 16:54] LABS: Glucose,Whole Blood 179 mg/dL (70-110)
== END 2024-06-03 17:05 | disposition other institution (70) ==
LOC: EC 13:50 → 6NMEDSUR 18:12
PROVIDERS: ADMIT Student in an Organized Health Care Education/Training Program; ATTEND Student in an Organized Health Care Education/Training Program
DX: J96.21 Acute and chronic respiratory failure with hypoxia (principal); J44.1 Chronic obstructive pulmonary disease with (acute) exacerbation; J43.9 Emphysema, unspecified; E11.65 Type 2 diabetes mellitus with hyperglycemia; I10 Essential (primary) hypertension; N40.0 Benign prostatic hyperplasia without lower urinary tract symptoms; E78.5 Hyperlipidemia, unspecified; K21.9 Gastro-esophageal reflux disease without esophagitis; F17.210 Nicotine dependence, cigarettes, uncomplicated; F10.20 Alcohol dependence, uncomplicated; F19.10 Other psychoactive substance abuse, uncomplicated; R63.4 Abnormal weight loss; Z68.23 Body mass index [BMI] 23.0-23.9, adult; Z11.52 Encounter for screening for COVID-19; Z79.51 Long term (current) use of inhaled steroids; Z79.84 Long term (current) use of oral hypoglycemic drugs; Z79.899 Other long term (current) drug therapy; Z88.2 Allergy status to sulfonamides
CPT/HCPCS: 36415; 71046; 80048; 80053; 80306; 83036; 83605; 83735; 84145; 84484; 85025; 87040; 87636; 93005; 94640; 94760; 96365; 96366; 96367; 96372; 96375; 96376; 99285